=== PATIENT | female | born 1965 | race Caucasian/White ===

== ENCOUNTER 2018-03-11 12:58 | Emergency (ER) | payer OTHER ==
[~2018-03-11] VITALS: Ht 175.3 cm; Wt 68.0 kg
[2018-03-11 14:06] VITALS: BP 144/91
[2018-03-11] MEDS ORDERED: ACETAMINOPHEN 325 MG TAB PO ONE ×2 (14:15→14:16)
== END 2018-03-11 15:25 | disposition home or self-care (01) ==
LOC: ER 12:58
DX: S01.01XA Laceration without foreign body of scalp, initial encounter (principal); Z88.0 Allergy status to penicillin; Z90.49 Acquired absence of other specified parts of digestive tract; W45.8XXA Other foreign body or object entering through skin, initial encounter; Y93.89 Activity, other specified; Y99.8 Other external cause status; Y92.89 Other specified places as the place of occurrence of the external cause
CPT/HCPCS: 12002